=== PATIENT | male | born 1985 | race Caucasian/White ===

== ENCOUNTER 2016-11-05 | Emergency (ER) | payer OTHER ==
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
== END 2016-11-05 06:43 | disposition home or self-care (01) ==
CPT/HCPCS: 99282

== ENCOUNTER → 2016-11-25 | Outpatient (CLI) | payer MEDICAID ==
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
== END | disposition home or self-care (01) ==
LOC: SLEEP 15:01
PROVIDERS: ATTEND Internal Medicine Critical Care Medicine
DX: G47.33 Obstructive sleep apnea (adult) (pediatric) (principal); E66.01 Morbid (severe) obesity due to excess calories; Z68.42 Body mass index [BMI] 45.0-49.9, adult; G89.4 Chronic pain syndrome; M54.9 Dorsalgia, unspecified; Z98.1 Arthrodesis status; Z98.890 Other specified postprocedural states; S39.92XS Unspecified injury of lower back, sequela; V89.2XXS Person injured in unspecified motor-vehicle accident, traffic, sequela
CPT/HCPCS: 99211

== ENCOUNTER → 2018-01-13 | Outpatient (CLI) | payer MEDICAID ==
--- NOTE | 2018-01-13 11:58 | XR ---
Lumbosacral spine HISTORY: Pain 5 views of the lumbosacral spine correlated prior exam 06/12/2016 Postop changes, spinal curvature again noted. There is no evident spondylolysis or interval change in alignment. Multilevel spondylosis is present. Loss of disc height compatible with degenerative disc disease. IMPRESSION: Postop changes are stable. Spinal curvature. Degenerative disc disease.
== END | disposition home or self-care (01) ==
LOC: RADXRMAIN 09:59
PROVIDERS: ATTEND Family Medicine
DX: M51.37 Other intervertebral disc degeneration, lumbosacral region (principal); M43.8X7 Other specified deforming dorsopathies, lumbosacral region; Z98.890 Other specified postprocedural states
CPT/HCPCS: 72110

== ENCOUNTER 2018-03-10 07:06 | Emergency (ER) | payer MEDICAID, OTHER ==
[2018-03-10 07:11] VITALS: RESP 18
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
[2018-03-10 09:30] VITALS: BP 144/77; PULSE 66; TEMP 97.3
== END 2018-03-10 09:29 | disposition home or self-care (01) ==
LOC: EC 07:06
DX: S69.92XA Unspecified injury of left wrist, hand and finger(s), initial encounter (principal); W46.0XXA Contact with hypodermic needle, initial encounter; Y92.69 Other specified industrial and construction area as the place of occurrence of the external cause; Y99.0 Civilian activity done for income or pay; Y93.89 Activity, other specified
CPT/HCPCS: 99283

== ENCOUNTER 2021-07-29 00:23 | Emergency (ER) | payer BC, MEDICAID ==
[2021-07-29 00:31] VITALS: BP 143/95; PULSE 77; RESP 18; TEMP 98.1
[2021-07-29] MEDS ORDERED: FAMOTIDINE 20 MG/2 ML VIAL IV STA (01:09)
[2021-07-29] MEDS ORDERED: diphenhydrAMINE 50 MG/ML 1 ML VIAL IVP STA (01:09)
[2021-07-29] MEDS ORDERED: methylPREDNISolone SOD SUCCI 125 MG/2 ML VIAL IV STA (01:09)
--- NOTE | 2021-07-29 02:34 | ED ---
Allergic Reaction HPI - General Chief complaint: Allergic Reaction Stated complaint: Allergic Reaction Time Seen by Provider: 07/29/21 00:35 Source: patient Mode of arrival: ambulatory Limitations: no limitations - History of Present Illness MD Complaint: allergic reaction -: days(s) Exposure: unknown Symptoms: rash, itching Severity: moderate Treatment Prior to Arrival: benadryl Previous Allergy History: none - Related Data Previous Rx's Medication Instructions Recorded Famotidine [Pepcid] 20 mg PO BID #14 tablet 07/29/21 predniSONE 60 mg PO DAILY #30 tab 07/29/21 Allergies Allergy/AdvReac Type Severity Reaction Status Date / Time No Known Allergies Allergy Verified 07/30/21 18:26 Review of Systems ROS Statement: Those systems with pertinent positive or pertinent negative responses have been documented in the HPI. ROS Other: All systems not noted in ROS Statement are negative. Constitutional: Denies: fever, chills Eyes: Denies: eye discharge ENT: Denies: congestion Respiratory: Denies: cough, dyspnea, wheezes Cardiovascular: Denies: chest pain, palpitations Gastrointestinal: Denies: vomiting, diarrhea Skin: Reports: as per HPI, rash Past Medical History Past Medical History: Musculoskeletal Disorder Additional Past Medical History / Comment(s): BACK PAIN. Hx laminectomy History of Any Multi-Drug Resistant Organisms: None Reported Past Surgical History: Back Surgery, Tonsillectomy Additional Past Surgical History / Comment(s): Epidural injections lumbar L4-L5 05/03/2015: Left lumbar discectomy L4-L5, 07/12/15 LUMBAR DICECTOMY LEFT LS1 Past Anesthesia/Blood Transfusion Reactions: No Reported Reaction Past Psychological History: No Psychological Hx Reported Smoking Status: Never smoker Past Alcohol Use History: Occasional Past Drug Use History: None Reported - Past Family History Father Family Medical History: Hypertension Mother Family Medical History: No Reported History General Exam Limitations: no limitations General appearance: alert, in no apparent distress Head exam: Present: atraumatic, normocephalic Eye exam: Present: normal appearance ENT exam: Present: normal oropharynx Respiratory exam: Present: normal lung sounds bilaterally. Absent: respiratory distress, wheezes, rales, rhonchi, stridor Cardiovascular Exam: Present: regular rate, normal rhythm, normal heart sounds. Absent: systolic murmur, diastolic murmur, rubs, gallop GI/Abdominal exam: Present: soft. Absent: tenderness Neurological exam: Present: alert Skin exam: Present: warm, dry, intact, urticaria Course Vital Signs 07/29/21 07/29/21 00:28 02:43 Temperature 98.1 F Pulse Rate 77 77 Respiratory 18 Rate Blood Pressure 143/95 O2 Sat by Pulse 96 17 L Oximetry Disposition Clinical Impression: Allergic reaction Disposition: HOME SELF-CARE Condition: Good Instructions (If sedation given, give patient instructions): General Allergic Reaction (ED) Prescriptions: Famotidine [Pepcid] 20 mg PO BID #14 tablet predniSONE 60 mg PO DAILY #30 tab Is patient prescribed a controlled substance at d/c from ED?: No Referrals: Evan Soriano MD [Primary Care Provider] - 1-2 days
== END 2021-07-29 02:45 | disposition home or self-care (01) ==
LOC: EC 00:23
DX: T78.40XA Allergy, unspecified, initial encounter (principal)
CPT/HCPCS: 99284; 96374; 96375 ×2; J1200; J2930

== ENCOUNTER 2021-07-30 18:12 | Emergency (ER) | payer BC ==
[2021-07-30 18:26] VITALS: TEMP 98.7
[2021-07-30] MEDS ORDERED: FAMOTIDINE 20 MG/2 ML VIAL IV STA (18:31)
[2021-07-30] MEDS ORDERED: methylPREDNISolone SOD SUCCI 125 MG/2 ML VIAL IV STA (18:31)
[2021-07-30] MEDS ORDERED: diphenhydrAMINE 50 MG/ML 1 ML VIAL IVP STA (18:31)
[2021-07-30] MEDS ORDERED: SODIUM CHLORIDE 0.9% 500 ML 500 ML IV ONE (18:32)
--- NOTE | 2021-07-30 19:52 | ED ---
Allergic Reaction HPI - General Chief complaint: Allergic Reaction Stated complaint: allergic reaction to meds Time Seen by Provider: 07/30/21 18:31 Source: patient, RN notes reviewed Mode of arrival: ambulatory Limitations: no limitations - History of Present Illness Initial Comments: 35-year-old male presents emergency Department chief complaint of hives. Patient states he was seen here yesterday for similar symptoms. Patient states she's unsure what is causing it. Patient states initially that it was poison aubrie. Patient states that he was taking some steroids, antihistamines and restarted. Denies any fevers or chills. Denies chest pain states feels short of breath. He did see his PCP today who sent him on Vistaril, Valtrex and do some lab work for possible viral cause - Related Data Previous Rx's Medication Instructions Recorded Famotidine [Pepcid] 20 mg PO BID #14 tablet 07/29/21 predniSONE 60 mg PO DAILY #30 tab 07/29/21 Allergies Allergy/AdvReac Type Severity Reaction Status Date / Time No Known Allergies Allergy Verified 07/30/21 18:26 Review of Systems ROS Statement: Those systems with pertinent positive or pertinent negative responses have been documented in the HPI. ROS Other: All systems not noted in ROS Statement are negative. Past Medical History Past Medical History: Musculoskeletal Disorder Additional Past Medical History / Comment(s): BACK PAIN. Hx laminectomy History of Any Multi-Drug Resistant Organisms: None Reported Past Surgical History: Back Surgery, Tonsillectomy Additional Past Surgical History / Comment(s): Epidural injections lumbar L4-L5 05/03/2015: Left lumbar discectomy L4-L5, 07/12/15 LUMBAR DICECTOMY LEFT LS1 Past Anesthesia/Blood Transfusion Reactions: No Reported Reaction Past Psychological History: No Psychological Hx Reported Smoking Status: Never smoker Past Alcohol Use History: Occasional Past Drug Use History: None Reported - Past Family History Father Family Medical History: Hypertension Mother Family Medical History: No Reported History General Exam Limitations: no limitations General appearance: alert, in no apparent distress Head exam: Present: atraumatic, normocephalic, normal inspection Eye exam: Present: normal appearance, PERRL, EOMI. Absent: scleral icterus, conjunctival injection, periorbital swelling Respiratory exam: Present: normal lung sounds bilaterally. Absent: respiratory distress, wheezes, rales, rhonchi, stridor Cardiovascular Exam: Present: regular rate, normal rhythm, normal heart sounds. Absent: systolic murmur, diastolic murmur, rubs, gallop, clicks Neurological exam: Present: alert, oriented X3, CN II-XII intact Skin exam: Present: warm, dry, intact, normal color, urticaria. Absent: rash Course Vital Signs 07/30/21 07/30/21 18:22 18:30 Temperature 98.7 F Pulse Rate 104 H Respiratory 24 26 H Rate Blood Pressure 150/92 O2 Sat by Pulse 96 Oximetry Medical Decision Making - Medical Decision Making Patient's symptoms are resolved will continue steroids and antihistamines Pepcid return parameters were discussed. Disposition Clinical Impression: Allergic reaction Disposition: HOME SELF-CARE Condition: Stable Instructions (If sedation given, give patient instructions): General Allergic Reaction (ED) Additional Instructions: Please return to the Emergency Department if symptoms worsen or any other concerns. Is patient prescribed a controlled substance at d/c from ED?: No Referrals: Evan Soriano MD [Primary Care Provider] - 1-2 days Time of Disposition: 19:52
[2021-07-30 20:12] VITALS: BP 139/82; PULSE 90; RESP 20
== END 2021-07-30 20:08 | disposition home or self-care (01) ==
LOC: EC 18:12
DX: T78.40XA Allergy, unspecified, initial encounter (principal)
CPT/HCPCS: 96374; 96375 ×2; 99283; J1200; J2930

== ENCOUNTER 2021-09-26 14:53 | Emergency (ER) | payer OTHER, BC ==
[2021-09-26 15:20] VITALS: RESP 18
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
[2021-09-26 18:17] VITALS: BP 152/73; PULSE 18; TEMP 98.2
== END 2021-09-26 18:17 | disposition home or self-care (01) ==
LOC: EC 14:53
DX: S39.012A Strain of muscle, fascia and tendon of lower back, initial encounter (principal); V59.49XA Driver of pick-up truck or van injured in collision with other motor vehicles in traffic accident, initial encounter; Y92.410 Unspecified street and highway as the place of occurrence of the external cause
CPT/HCPCS: 72082; 72125; 99284

== ENCOUNTER 2022-01-02 06:14 | Day surgery (SDC) | payer OTHER ==
[2022-01-01 11:03] VITALS: BMI 38.5
[~2022-01-02 06:14] MED LIST: LACTATED RINGERS 1,000 ML IV SCH; LIDOCAINE 1% (10MG/ML) FOR IV START INTRADERMA PRN
[2022-01-02 06:25] VITALS: TEMP 97.8
[2022-01-02] MEDS ORDERED: LACTATED RINGERS 1,000 ML IV ONE (06:33)
[2022-01-02] MEDS ORDERED: IOPAMIDOL M200 10 ML VIAL ONE (06:55)
[2022-01-02] MEDS ORDERED: fentaNYL (PF) 50 MCG/ML 2 ML AMP ONE (06:55)
[2022-01-02] MEDS ORDERED: methylPREDNISolone ACETATE 80 MG/ML 1 ML VIAL ONE (06:55)
[2022-01-02] MEDS ORDERED: MIDAZOLAM 2 MG/2 ML VIAL ONE (06:55)
--- NOTE | 2022-01-02 07:13 | P.PCN ---
Date of Procedure: 01/02/22 Procedure(s) Performed: PREOPERATIVE DIAGNOSIS: 1-Lumbar radiculopathy . 2-lumbar herniated disc disease. POSTOPERATIVE DIAGNOSIS: Same as preoperative diagnoses. PROCEDURE 1. Transforaminal epidural steroid injection under fluoroscopic guidance at left L4-5 level. (Fluoroscopy images stored on file in the radiology Department ) 2. Lumbar epidurogram . ANESTHESIA: Local with 1% lidocaine 3 ml , moderate sedation with intravenous Versed 1 mg and fentanyle 50 micrograms. EBL: Minimal PROCEDURE INDICATION: The patient with low back pain and radiculopathy symptoms unresponsive to conservative treatment. PROCEDURE DESCRIPTION / TECHNIQUE: The patient was seen and identified in the preoperative area. Risks, benefits, complications, and alternatives were discussed with the patient. The patient agreed to proceed with the procedure and signed the consent. IV was started, and vital signs were stable. Patient was taken to the OR and time out was completed. The patient was placed in the prone position on procedure table and a pillow was placed under the abdomen to reduce lumbar lordosis. The lumbosacral area was prepped and draped in the usual sterile fashion. Critical pause was taken. Vital signs were closely monitored during the procedure. Conscious sedation was used during the procedure to decrease patient s anxiety. Using oblique fluoroscopy, the chin of the ``Mann dog at left L4-5 level was identified, and the skin and deeper tissues just below was localized with 1% lidocaine. Subsequently, a 22-gauge 5-inch spinal needle was advanced under a tunneled view fluoroscopic guidance just underneath the chin of the ``Mann dog at the left L4-5 Under lateral fluoroscopy, the needle was then advanced to the posterior border of the interforaminal space. After negative aspiration of CSF and blood and with no paresthesias, 1 mL Isovue 200 contrast dye was injected excellent epidurogram and outlining of the nerve root Subsequently, 3 mL of block solution containing 80 mg Depo-Medrol and 2 mL of 0.9% normal saline PF was injected. Needle was removed . At the end of the procedure, skin was cleansed, and bandages were applied. COMPLICATIONS:none DISPOSITION / PLANS: The patient was placed in a supine position and transferred to the recovery area in a stable condition for observation. There was no evidence of lower extremity motor or sensory deficit after the procedure. Patient was discharged from the recovery room after meeting discharge criteria. Home discharge instructions were given to the patient by the staff. The patient was reexamined prior to discharge.
[2022-01-02] MEDS ORDERED: IV FLUID CONTINUATION 1,000 ML IV ONE (07:14)
[2022-01-02 07:34] VITALS: BP 122/81; PULSE 85; RESP 17
--- NOTE | 2022-01-02 08:35 | FL ---
Fluoroscopy HISTORY: Pain 18 seconds fluoroscopy time supplied to the referring clinician. 1 intraoperative C-arm images docum ent the procedure. See dictated report from anesthesia.
== END 2022-01-02 07:48 | disposition home or self-care (01) ==
LOC: ORPAIN 06:14
PROVIDERS: ATTEND Specialist
DX: M51.16 Intervertebral disc disorders with radiculopathy, lumbar region (principal)
CPT/HCPCS: 64483; J2250; J1040; J3010; Q9966; 99152

== ENCOUNTER 2022-11-06 07:17 | Day surgery (SDC) | payer BC, OTHER ==
[2022-11-03 14:32] VITALS: BMI 38.5
[2022-11-06] MEDS ORDERED: LACTATED RINGERS 1,000 ML IV SCH (07:28)
[2022-11-06] MEDS ORDERED: LIDOCAINE 1% (10MG/ML) FOR IV START INTRADERMA PRN (07:28)
[2022-11-06 07:37] VITALS: TEMP 97
[2022-11-06] MEDS ORDERED: IOPAMIDOL M200 10 ML VIAL ONE (08:20)
[2022-11-06] MEDS ORDERED: methylPREDNISolone ACETATE 80 MG/ML 1 ML VIAL ONE (08:20)
[2022-11-06] MEDS ORDERED: fentaNYL (PF) 50 MCG/ML 2 ML AMP ONE (08:20)
[2022-11-06] MEDS ORDERED: MIDAZOLAM 2 MG/2 ML VIAL ONE (08:20)
--- NOTE | 2022-11-06 08:36 | P.PCN ---
Date of Procedure: 11/06/22 Procedure(s) Performed: PREOPERATIVE DIAGNOSIS: 1-Lumbar radiculopathy . POSTOPERATIVE DIAGNOSIS: Same as preoperative diagnoses. PROCEDURE 1. Transforaminal epidural steroid injection under fluoroscopic guidance at left L4-5 level. (Fluoroscopy images stored on file in the radiology Department ) 2. Lumbar epidurogram . ANESTHESIA: Local with 1% lidocaine 3 ml , moderate sedation with intravenous Versed 1 mg and fentanyle 50 micrograms. Sedation start time : 0 824 . Sedation. stop time : 0 831 . EBL: Minimal PROCEDURE INDICATION: The patient with low back pain and radiculopathy symptoms unresponsive to conservative treatment. PROCEDURE DESCRIPTION / TECHNIQUE: The patient was seen and identified in the preoperative area. Risks, benefits, complications, and alternatives were discussed with the patient. The patient agreed to proceed with the procedure and signed the consent. IV was started, and vital signs were stable. Patient was taken to the OR and time out was completed. The patient was placed in the prone position on procedure table and a pillow was placed under the abdomen to reduce lumbar lordosis. The lumbosacral area was prepped and draped in the usual sterile fashion. Critical pause was taken. Vital signs were closely monitored during the procedure. Conscious sedation was used during the procedure to decrease patient s anxiety. Using oblique fluoroscopy, the chin of the ``Mann dog at left L4-5 level was identified, and the skin and deeper tissues just below was localized with 1% lidocaine. Subsequently, a 22-gauge 5-inch spinal needle was advanced under a tunneled view fluoroscopic guidance just underneath the chin of the ``Mann dog at the left L4-5 Under lateral fluoroscopy, the needle was then advanced to the posterior border of the interforaminal space. After negative aspiration of CSF and blood and with no paresthesias, 1 mL Isovue 300 contrast dye was injected excellent epidurogram and outlining of the nerve root Subsequently, 3 mL of block solution containing 80 mg Depo-Medrol and 2 mL of 0.9% normal saline PF was injected. Needle was removed. At the end of the procedure, skin was cleansed, and bandages were applied. COMPLICATIONS:none DISPOSITION / PLANS: The patient was placed in a supine position and transferred to the recovery area in a stable condition for observation. There was no evidence of lower extremity motor or sensory deficit after the procedure. Patient was discharged from the recovery room after meeting discharge criteria. Home discharge instructions were given to the patient by the staff. The patient was reexamined prior to discharge.
[2022-11-06] MEDS ORDERED: LACTATED RINGERS 1,000 ML IV ONE (08:38)
[2022-11-06 08:42] VITALS: RESP 18
[2022-11-06 08:55] VITALS: BP 128/70; PULSE 79
--- NOTE | 2022-11-06 09:56 | FL ---
EXAMINATION TYPE: FL guided pain mgmt statistic DATE OF EXAM: 11/06/2022 HISTORY: Fluoroscopy time 7 seconds of fluoroscopy provided. IMPRESSION: 1. Fluoroscopy time.
== END 2022-11-06 09:10 | disposition home or self-care (01) ==
LOC: ORPAIN 07:17
PROVIDERS: ATTEND Specialist
DX: M54.16 Radiculopathy, lumbar region (principal)
CPT/HCPCS: 64483; J2250; J1040; J3010; Q9966

== ENCOUNTER → 2022-11-19 | Outpatient (CLI) | payer BC, OTHER ==
[2022-11-19 10:06] VITALS: BP 163/90; PULSE 81; RESP 18; TEMP 97.8
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
== END ==
LOC: PNWHC3 09:33
PROVIDERS: ATTEND Specialist
DX: M47.816 Spondylosis without myelopathy or radiculopathy, lumbar region (principal); M51.36 Other intervertebral disc degeneration, lumbar region; G89.29 Other chronic pain
CPT/HCPCS: 99211

== ENCOUNTER 2023-02-12 06:37 | Day surgery (SDC) | payer BC, OTHER ==
[2023-02-09 15:31] VITALS: BMI 47.9
[2023-02-12] MEDS ORDERED: LIDOCAINE 1% (10MG/ML) FOR IV START INTRADERMA PRN (06:41)
[2023-02-12] MEDS ORDERED: LACTATED RINGERS 1,000 ML IV SCH (06:41)
[2023-02-12 06:57] VITALS: TEMP 97.5
[2023-02-12] MEDS ORDERED: methylPREDNISolone ACETATE 40 MG/ML 1 ML VIAL ONE (07:26)
[2023-02-12] MEDS ORDERED: MIDAZOLAM 2 MG/2 ML VIAL ONE (07:26)
[2023-02-12] MEDS ORDERED: ONDANSETRON 4 MG/2 ML VIAL ONE (07:26)
[2023-02-12] MEDS ORDERED: fentaNYL (PF) 50 MCG/ML 2 ML AMP ONE (07:26)
[2023-02-12] MEDS ORDERED: ROPIVACAINE 5 MG/ML 20 ML AMPULE ONE (07:26)
--- NOTE | 2023-02-12 07:46 | P.PCN ---
Date of Procedure: 02/12/23 Procedure(s) Performed: PREOPERATIVE DIAGNOSIS : 1- Lumbar spondylosis with Facet Arthropathy without myelopathy . 2- Lumber degenerative disc disease POSTOPERATIVE DIAGNOSIS: 1- Lumbar spondylosis with Facet Arthropathy without myelopathy . 2- Lumber degenerative disc disease PROCEDURE: Diagnostic bilateral L1 , L2 , medial branch block under fluoroscopy guidance(fluoroscopy images available in the radiology Department ) ( To target the facet joint between Bilateral L2-3 )#2 nd ANESTHESIA:, moderate Sedation with Versed 2 mg and fentanyl 100 g . (Additionally started at 07:30 , ended at 07:43 EBL: Minimal COMPLICATION: None PROCEDURE INDICATION: Chronic low back pain secondary to Facet arthropathy unresponsive to conservative treatment. PROCEDURE DESCRIPTION: the patient was seen and identified in the preop holding area , risks and benefits and possible complications of the procedure and alternative were discussed with the patient, and the patient agreed to proceed with the procedure and signed the consent and vital signs monitored during the procedure and fluoroscopy was used to maximize the benefit and accuracy of the needle placement, and sedation was given to decrease patient anxiety, patient was taken to the procedure room and placed in prone position vital signs monitored in the back prepped with chlorhexidine X3 then under strict sterile technique using a right oblique fluoroscopy ,the junction of the transverse process and the superior articulating process of the right L1 , L2 vertebra which corresponding to the fluoroscopy image of the eye of the Mann dog on the block side for the medial branches and subsequently , after local infiltration of skin and subcu tissuies with Ropivacaine 0.5 % , one mL at each level ,then 20-gauge 5 inches long Quincke-type needles , 2needle was used , each one of them placed at the junction of the base of the transverse process and the superior articular process at the appropriate level, and the needle was advanced until the periosteum contacted, needle placement confirmed with AP oblique and lateral view and after appropriate needle placement confirmed, and after negative aspiration for heme and CSF and there was no paresthesia 1 mL of Ropivacaine 0.5% mixed with 20 mg Depo-Medrol , then half mL injected at each level after negative aspiration the needle subsequently removed and the same procedure repeated for the left side at left side at L1, L2 levels. At the end of the procedure and the needles removed and a bandage applied after the skin was cleaned the cleaning solution patient taken to recovery room in stable condition and monitors in the recovery room for 20-30 minutes and discharged home in stable condition after discharge criteria met and patient will follow up with the pain clinic in 2-4 weeks
[2023-02-12] MEDS ORDERED: IV FLUID CONTINUATION 900 ML IV ONE (07:48)
[2023-02-12 08:12] VITALS: BP 124/78; PULSE 76; RESP 18
--- NOTE | 2023-02-12 10:12 | FL ---
Intraoperative/procedural fluoroscopic services were provided for bilateral lumbar facet block. Total fluoroscopy time is 26.9 seconds with a total of 5 submitted images to PACS. Total DAP [id number]. Plea se see the operative note for further details.
== END 2023-02-12 08:21 | disposition home or self-care (01) ==
LOC: ORPAIN 06:37
PROVIDERS: ATTEND Specialist
DX: M47.816 Spondylosis without myelopathy or radiculopathy, lumbar region (principal); M51.36 Other intervertebral disc degeneration, lumbar region; G89.29 Other chronic pain
CPT/HCPCS: 64493; 99152; J2250; J1030; J2405; J3010; J2795

== ENCOUNTER → 2023-03-05 | Outpatient (CLI) | payer BC, OTHER ==
[2023-03-05 14:18] VITALS: BP 139/84; PULSE 72; RESP 16; TEMP 98.1
--- NOTE | 2023-03-05 14:44 | P.PAINPG ---
PQRS Measure Charge Sheet Comment: A 37 yr old male with a history of severe and chronic LBP secondary to lumbar DDD and spondylosis with facet arthropathy without myelopathy presents today for evaluation s/p BL MBB L2-L3 #2. Pt states he experienced 85 % pain relief x 18 hrs s/p procedure. Pain level is provoked at 6 /10 in intensity, constant, localized in the lumbar spine, sharp in character w shooting towards the hips. Pain is provoked by sitting upright from a forward bended position. Pain is alleviated with heat, ice, medications, repositioning and rest. Interventional pain procedures completed include BL MBB L2-3 x2 Patient is currently on [place], Robaxin Patient denies any side effects of the medication(s), denies excessive drowsiness or sleepiness, denies suicidal ideation and reports that the current pain medication is helping to control the pain and improve activities of daily living. Patient denies any motor or sensory deficits. Patient denies any fever or night sweats, denies any change in the bowel movements or urination. Physical Examination: -Constitutional: Cooperative. Not in acute distress . - Neurologic: Cranial nerve II to XII intact. No focal neurological deficits. - Psychatric: Alert & oriented x 3. Matching mood & appropriate affect. Judgment and insight intact. - Musculoskeletal: Cervical spine: Muscle bulk/ tone/ strength in the bilateral upper extremities normal Vertebral body tenderness to palpation over Spurling test positive Distraction test positive Facet loading test positive TTP Thoracic spine Muscle bulk / tone/ strength in the bilateral paraspinal muscles normal Vertebral body tender to palpation over Facet loading test positive TTP Lumbar spine: Motor bulk/ tone/ strength lower extremities , thigh and legs : 5/5 Deep tendon reflexes : Normal Knee Jerk. Normal Ankle Jerk . Vertebral body tenderness to palpation over Lumbar Facet Loading Test positive over BL L2-3 facets Straight Leg Raise: positive at 30 degrees right side/ left side Gaenslen's Test positive Sacral spine : Severe tenderness over the Sacroiliac joint: right side / left side Range of motion: Flexion of the lumbar spine <60 degrees Range of motion: Extension of the lumbar spine <20 degrees Gaenslen's Test positive right side / left side Gwyn test: positive right side / left side Thigh Thrust Test positive right side / left side Sacral Thrust Test positive right side / left side Assessment and plan: Chronic LBP secondary to lumbar DDD, spondylosis with facet arthropathy without myelopathy Recommendation of BL RFA L2-3. Pt exhibited substantial pain relief w prior facet blocks of the medial branches. Risks, benefits of procedure discussed and pt verbalized understanding. Admits to anticoagulant use or medical history of diabetes. Protocol for discontinuation/ continuation of medications alva procedure discussed. All questions answered. I have spent less than 30 minutes on patient care today. Dr Witt was available by phone for the evaluation of this patient. The time was used to review the medical records including relevant urine studies and Prescription history (MAPs), review of the available imaging, evaluation and examination of the patient, coordination of care with the medical staff and if applicable referring physicians, as well as creation of the medical record PQRS Narrative: Smoking Status Never smoker Hx Alcohol Use (MH) No Home Medications: Ambulatory Orders Ibuprofen [Motrin] 800 mg PO DAILY 12/16/22 Controlled Substance Measures - Controlled Substance Measures Is patient prescribed a controlled substance at discharge?: No
== END | disposition home or self-care (01) ==
LOC: PNWHC3 13:35
PROVIDERS: ATTEND Specialist
DX: M51.36 Other intervertebral disc degeneration, lumbar region (principal); M47.816 Spondylosis without myelopathy or radiculopathy, lumbar region; E11.9 Type 2 diabetes mellitus without complications
CPT/HCPCS: 99211

== ENCOUNTER 2023-03-20 06:21 | Day surgery (SDC) | payer BC, OTHER ==
[2023-03-18 16:06] VITALS: BMI 47.9
[2023-03-20] MEDS ORDERED: ONDANSETRON 4 MG/2 ML VIAL ONE (06:41)
[2023-03-20 06:45] VITALS: TEMP 97.5
[2023-03-20] MEDS ORDERED: ONDANSETRON 4 MG/2 ML VIAL IVP ONE (06:46)
[2023-03-20] MEDS ORDERED: LACTATED RINGERS 1,000 ML IV ONE (06:46)
[2023-03-20] MEDS ORDERED: MIDAZOLAM 2 MG/2 ML VIAL ONE (06:57)
[2023-03-20] MEDS ORDERED: fentaNYL (PF) 50 MCG/ML 2 ML AMP ONE (06:57)
[2023-03-20] MEDS ORDERED: ROPIVACAINE 5 MG/ML 20 ML AMPULE ONE (06:57)
[2023-03-20] MEDS ORDERED: methylPREDNISolone ACETATE 40 MG/ML 1 ML VIAL ONE (06:57)
[2023-03-20] MEDS ORDERED: LACTATED RINGERS 1,000 ML IV SCH (07:23)
[2023-03-20] MEDS ORDERED: LIDOCAINE 1% (10MG/ML) FOR IV START INTRADERMA PRN (07:23)
--- NOTE | 2023-03-20 07:26 | P.PCN ---
Date of Procedure: 03/20/23 Procedure(s) Performed: PREOPERATIVE DIAGNOSIS: 1-Lumbar Spondylosis with Facet Arthropathy without myelopathy. 2- Lumber degenerative disc disease. POSTOPERATIVE DIAGNOSIS: 1- Lumbar Spondylosis with Facet Arthropathy without myelopathy. 2- Lumber degenerative disc disease. PROCEDURES : Bilateral Radiofrequency thermocoagulation, L1, L2 medial branch, with fluoroscopic guidance (fluoroscopy images available in the radiology department) ( to denervate the facet joint at bilateral L2-3 levels ). ANESTHESIA: Monitored anesthesia care as per anesthesia department , Moderate sedation with intravenous versed 2 mg and fentaneyl 100 mcg, and local infiltration with Ropivacaine 0.5 % . EBL: Minimal PROCEDURE INDICATION: The patient with low back pain secondary to lumbar facet arthropathy who had more than 80% relief of her pain with previous diagnostic lumbar medial branch block with bupivacaine. PROCEDURE DESCRIPTION / TECHNIQUE: The patient was seen and identified in the preoperative area. Risks, benefits, complications, including but not limited to risk of infection ,bleeding , allergic reactions to the medications and no complete pain releife , and alternatives were discussed with the patient, the patient agreed to proceed with the procedure and signed the consent. IV was started. Vital signs remained stable throughout the procedure. Patient was taken to the OR and time out was completed. The patient was placed i n the prone position on the procedure table. The lumber area was prepped and draped in the usual sterile fashion. . Vital signs were closely monitored during the procedure .IV sedation was used during the procedure to decrease patients anxiety. Using AP and then oblique fluoroscopy, the ``eye of the Mann dog corresponding to the connection between the superior and transverse articular processes of right L1, L2 were identified, marked, and localized with 1% lidocaine. Subsequently, a 18 [id number] radiofrequency cannula with a 10-mm active tip was advanced guided by fluoroscopy to each of the``eyes of the Mann dog at right L1, L2. Each site then underwent sensory testing at 50 Hz and 0 to 1 volt and motor testing at 2.5 Hz and 0 to 3 volt with local stimulation, but no radicular symptoms down the legs. Thereafter each sites underwent radiofrequency thermocoagulation at 80 degrees celsius for 90 seconds after injecting 0.5 ml of PF Ropivacaine 1ml, then after the thermocoagulation done , 1 ml of the block solution containing Depo-Medrol 20 mg and 3 ml of Ropivacaine 0.5% was injected at the right L1 , L2 , levels after negative aspiration of CSF and blood and with no paresthesias. Cannulas were retracted while injecting lidocaine 1% until the needle is out. The same procedure was repeated at the level of Left L1, L2 levels. At the end of the procedure, the skin was cleansed and bandages were applied. COMPLICATIONS: No acute complications. DISPOSITION / PLANS: The patient was placed in a supine position and transferred to the recovery area in a stable condition for observation and was discharged from the recovery room after meeting discharge criteria. Home discharge instructions given to the patient by the staff. The patient was reexamined prior to discharge. The patient will schedule a follow up in the clinic in 2-4 weeks.
[2023-03-20] MEDS ORDERED: IV FLUID CONTINUATION 1,000 ML IV ONE (07:28)
[2023-03-20 07:45] VITALS: BP 120/78; PULSE 72; RESP 16
--- NOTE | 2023-03-20 07:58 | FL ---
EXAMINATION TYPE: FL guided pain mgmt statistic DATE OF EXAM: 03/20/2023 CLINICAL HISTORY: Low back pain. TECHNIQUE: Fluoroscopy. COMPARISON: None. FINDINGS: Fluoroscopic guidance was provided during pain relief procedure performed by Dr. Witt . A total of 25.4 seconds of fluoroscopic time was utilized during the procedure and 8 spot images a re acquired. Images acquired shows needle localization at several levels in the lumbar spine. IMPRESSION: As Above. Total DAP = 0.07023 mGy x m2
== END 2023-03-20 07:59 | disposition home or self-care (01) ==
LOC: ORPAIN 06:21
PROVIDERS: ATTEND Specialist
DX: M51.36 Other intervertebral disc degeneration, lumbar region (principal); M47.816 Spondylosis without myelopathy or radiculopathy, lumbar region; Z79.899 Other long term (current) drug therapy
CPT/HCPCS: 64636 ×2; 64635; 99152; J2250; J1030; J2405; J3010; J2795